=== PATIENT | female | born 1975 | race Caucasian/White ===

== ENCOUNTER 2016-08-18 09:08 | Day surgery (SDC) | payer OTHER ==
[~2016-08-18 09:08] MED LIST: FENTANYL 250 MCG/5 ML AMP IV PRN; LACTATED RINGERS 1,000 ML IV SCH; LIDOCAINE Viscous 2% 15 ML UDCUP PO PRN; MIDAZOLAM HCL 5 MG/5 ML VIAL IV PRN
[2016-08-18] MEDS ORDERED: IV START KIT ONE (09:40)
[2016-08-18] MEDS ORDERED: MIDAZOLAM HCL 5 MG/5 ML VIAL ONE ×2 (10:47→11:22)
[2016-08-18] MEDS ORDERED: LIDOCAINE Viscous 2% 15 ML UDCUP ONE (10:47)
[2016-08-18] MEDS ORDERED: FENTANYL 5 ML ONE (10:47)
[2016-08-18 15:56] LABS: HELICOBACTER PYLORII DETECTION NEGATIVE (NEGATIVE)
--- NOTE | 2016-08-21 13:10 | SURGPATH ---
[facility] [address] [place] [id number] Patient Name: DEVIN NEWMAN MR#: [id number] : 1975 Gender: F Specimen #: [id number] Collected: 08/18/2016 Received: 08/20/2016 Reported: 08/21/2016 Submitting Phys: TIM QUINTERO Copy To Phys: [facility] Clinical History / Pre-Operative Diagnosis: HISTORY OF COLON POLYPS; DYSPHAGIA WITH HEARTBURN; HISTORY OF HIATAL HERNIA AND RECURRENT ESOPHAGEAL DILATION; RULE OUT GASTRITIS Specimen Source / Surgical Procedure Performed: ANTRAL BIOPSY Interpretation: ANTRAL BIOPSY: - NO SIGNIFICANT PATHOLOGIC ABNORMALITIES IDENTIFIED. Electronically Signed Out Sally Pepper M.D. Gross Description: The specimen is received in a formalin filled container labeled with the patient's name and "antral biopsy". A single barrera biopsy is 0.5 cm. Totally embedded in one cassette. Dav Allen Microscopic Description: Sections of the antral biopsy show benign antral mucosa with no significant pathologic changes. No Helicobacter organisms are appreciated on the routinely stained sections. 1: [id number]
== END 2016-08-18 12:23 | disposition home or self-care (01) ==
LOC: SDC 09:08
PROVIDERS: ATTEND Internal Medicine Gastroenterology
PROC: 0D748ZZ Dilation of Esophagogastric Junction, Via Natural or Artificial Opening Endoscopic (ICD-10-PCS; principal; 2016-08-18)
PROC: 0DJD8ZZ Inspection of Lower Intestinal Tract, Via Natural or Artificial Opening Endoscopic (ICD-10-PCS; 2016-08-18)
PROC: 0DB68ZX Excision of Stomach, Via Natural or Artificial Opening Endoscopic, Diagnostic (ICD-10-PCS; 2016-08-18)
DX: Q39.4 Esophageal web (principal); Z12.11 Encounter for screening for malignant neoplasm of colon; Z86.010 Personal history of colon polyps; K29.70 Gastritis, unspecified, without bleeding; K29.80 Duodenitis without bleeding
CPT/HCPCS: 87081; 43249; 45378; 43239; J3010; J2250 ×2; A9270; J7120